=== PATIENT | male | born 1980 | race Caucasian/White ===

== ENCOUNTER 2024-08-20 15:44 | Emergency (ER) | payer SELFPAY ==
[~2024-08-20] VITALS: Ht 170.2 cm; Wt 68.0 kg
[2024-08-20] MEDS ORDERED: ONDANSETRON HCL/PF 4 MG/2 ML VIAL ONE (17:04)
[2024-08-20] MEDS ORDERED: FAMOTIDINE/PF INJ 20 MG/2 ML VIAL IV ONE (17:05)
[2024-08-20] MEDS: IV NS 0.9% 1,000 ML BAG IV ONE (17:17)
[2024-08-20] MEDS ORDERED: PANTOPRAZOLE 40 MG VIAL ONE (17:17)
[2024-08-20] MEDS: ONDANSETRON HCL/PF 4 MG/2 ML VIAL IVP ONE (17:22)
[2024-08-20 17:26] LABS: BASOPHILS # (AUTO) 0.2 K/uL (0.0-0.2); HEMATOCRIT 36 % (39-51); HEMOGLOBIN 11.4 g/dL (13.5-17.5); LYMPHOCYTES # (AUTO) 1.1 K/uL (0.8-4.8); LYMPHOCYTES % (AUTO) 6.6 % (20.0-44.0); MEAN CORPUSCULAR HEMOGLOBIN 24 PG (26.0-33.0); MEAN CORPUSCULAR HGB CONC 32 g/dl (31.0-36.0); MEAN CORPUSCULAR VOLUME 76 fL (80-96); MONOCYTES # (AUTO) 1.7 K/uL (0.1-1.30); MONOCYTES % (AUTO) 10.5 % (2.0-12.0); NEUTROPHILS # (AUTO) 13.6 K/uL (1.8-8.9); NEUTROPHILS % (AUTO) 81.9 % (43.0-81.0); PLATELET COUNT (AUTO) 460 K/uL (150-450); RED BLOOD CELL COUNT(AUTO) 4.78 MIL/uL (4.5-6.0); RED CELL DISTRIBUTION WIDTH 18.5 % (11.5-15.0); WHITE BLOOD COUNT (AUTO) 16.5 K/uL (4.3-11.0)
[2024-08-20] MEDS: PANTOPRAZOLE 40 MG VIAL IV ONE (17:28)
[2024-08-20 17:35] LABS: CALCIUM, SERUM 8.6 mg/dL (8.5-10.1); CARBON DIOXIDE 27 mmol/L (21-32); CHLORIDE 94 mmol/L (98-107); CREATININE 1.5 mg/dL (0.6-1.3); GLUCOSE 120 mg/dL (74-106); POTASSIUM 3.3 mmol/L (3.5-5.1); SODIUM SERUM 133 mmol/L (136-145); UREA NITROGEN, BLOOD 18 mg/dL (7-18)
[2024-08-20 17:48] LABS: APPEARANCE,URINE CLEAR (CLEAR); BILIRUBIN,URINE Negative (NEGATIVE); BLOOD, URINE Moderate Ery/uL (NEGATIVE); COLOR,URINE YELLOW (YELLOW); KETONES,URINE 40 mg/dL (NEGATIVE); LEUKOCYTE ESTERASE ,URINE Negative (NEGATIVE); PH,URINE 5.5 (5.0-8.0); PROTEIN,URINE >=300 mg/dl (NEGATIVE); UGLUCOSE Negative (NEGATIVE); UROBILINOGEN,URINE 0.2 EU/dL (0.2)
[2024-08-20 17:51] LABS: NITRITE, URINE NEGATIVE (NEGATIVE)
[2024-08-20 17:52] LABS: ADD URINE CULTURE NO; BACTERIA,URINE Few /HPF (None Seen); SQUAMOUS EPITHELIAL CELL,UR None Seen /HPF (None Seen)
[2024-08-20 17:55] LABS: ALANINE AMINOTRANSFERASE 40 U/L (12-78); ALCOHOL, BLOOD 327 mg/dL (0-10); ALKALINE PHOSPHATASE 99 U/L (46-116); ASPARTATE AMINOTRANSFERASE 48 U/L (15-37); BILIRUBIN,DIRECT 0.2 mg/dL (0.0-0.2); BILIRUBIN,TOTAL 0.6 mg/dL (0.2-1.0); TOTAL PROTEIN, SERUM 8.3 g/dL (6.4-8.2)
[2024-08-20 17:56] LABS: ACETAMINOPHEN <10 ug/ml (10-30); SALICYLATE 1.1 mg/dL (2.8-20.0)
[2024-08-20 17:56] LABS: AMPHETAMINE, URINE NEGATIVE (NEGATIVE); BARBITURATE, URINE NEGATIVE (NEGATIVE); BENZODIAZEPINE, URINE NEGATIVE (NEGATIVE); CANNABINOID, URINE NEGATIVE (NEGATIVE); COCCAINE, URINE NEGATIVE (NEGATIVE); OPIATE, URINE NEGATIVE (NEGATIVE); PHENCYCLIDINE SCREEN,URINE NEGATIVE (NEGATIVE)
[2024-08-20 20:12] VITALS: BP 138/88; TEMP 98.2; O2SAT 98
[2024-08-21] MEDS ORDERED: ONDANSETRON HCL/PF 4 MG/2 ML VIAL ONE (03:05)
[2024-08-21] MEDS ORDERED: PANTOPRAZOLE 40 MG VIAL ONE (03:05)
[2024-08-21] MEDS ORDERED: POTASSIUM CL. PREMIX PERIPHER. 100 ML ONE (03:06)
[2024-08-21] MEDS ORDERED: OCTREOTIDE 50 MCG/ML AMPUL ONE (03:06)
[2024-08-21] MEDS ORDERED: ESCI20TA PO (10:02)
[2024-08-21] MEDS ORDERED: BUPR300T52 PO (10:02)
[2024-08-23] MEDS ORDERED: Thiamine HCL PO (13:28)
[2024-08-23] MEDS ORDERED: CHLO25CA22 PO (13:28)
[2024-08-23] MEDS ORDERED: PANT40TA49 PO (13:28)
== END 2024-08-20 20:13 | disposition home or self-care (01) ==
LOC: ER 15:53
DX: F10.129 Alcohol abuse with intoxication, unspecified (principal); R11.10 Vomiting, unspecified; Z60.2 Problems related to living alone; Z79.899 Other long term (current) drug therapy; Z20.822 Contact with and (suspected) exposure to COVID-19; Y90.8 Blood alcohol level of 240 mg/100 ml or more
CPT/HCPCS: 99285; 96374; 96361; 96375; 93005; 85025; 80048; 80076; 81001; 36415; 84484; 87426; 80143; 80320 ×2; 80307; J2405; J7030; J2470; G0480; J1308; J2354; J3480

== ENCOUNTER 2024-08-21 01:29 | Inpatient (IN) | payer SELFPAY ==
[~2024-08-21] VITALS: Ht 170.2 cm; Wt 72.6 kg
[2024-08-21] MEDS: IV NS 0.9% 1,000 ML IV ONE (02:07)
[2024-08-21 02:17] LABS: BASOPHILS # (AUTO) 0.1 K/uL (0.0-0.2); BASOPHILS % (AUTO) 0.6 % (0.0-2.0); EOSINOPHILS % (AUTO) 0.1 % (0.0-6.0); HEMATOCRIT 36 % (39-51); HEMOGLOBIN 11.1 g/dL (13.5-17.5); LYMPHOCYTES # (AUTO) 1.4 K/uL (0.8-4.8); LYMPHOCYTES % (AUTO) 10.6 % (20.0-44.0); MEAN CORPUSCULAR HEMOGLOBIN 24 PG (26.0-33.0); MEAN CORPUSCULAR HGB CONC 31 g/dl (31.0-36.0); MEAN CORPUSCULAR VOLUME 77 fL (80-96); MONOCYTES # (AUTO) 1.2 K/uL (0.1-1.30); NEUTROPHILS # (AUTO) 10.6 K/uL (1.8-8.9); NEUTROPHILS % (AUTO) 79.7 % (43.0-81.0); PLATELET COUNT (AUTO) 387 K/uL (150-450); RED BLOOD CELL COUNT(AUTO) 4.64 MIL/uL (4.5-6.0); RED CELL DISTRIBUTION WIDTH 18.7 % (11.5-15.0); WHITE BLOOD COUNT (AUTO) 13.3 K/uL (4.3-11.0)
[2024-08-21 02:31] LABS: CALCIUM, SERUM 8.8 mg/dL (8.5-10.1); CREATININE 1.2 mg/dL (0.6-1.3); POTASSIUM 3.2 mmol/L (3.5-5.1)
[2024-08-21 02:38] LABS: BILIRUBIN,TOTAL 0.6 mg/dL (0.2-1.0)
[2024-08-21 02:48] LABS: APPEARANCE,URINE CLEAR (CLEAR); BILIRUBIN,URINE NEGATIVE (NEGATIVE); BLOOD, URINE 1+ Ery/uL (NEGATIVE); COLOR,URINE YELLOW (YELLOW); KETONES,URINE NEGATIVE (NEGATIVE); LEUKOCYTE ESTERASE ,URINE NEGATIVE (NEGATIVE); NITRITE, URINE NEGATIVE (NEGATIVE); PROTEIN,URINE NEGATIVE (NEGATIVE); UGLUCOSE NEGATIVE (NEGATIVE); UROBILINOGEN,URINE 0.2 EU/dL (0.2)
[2024-08-21 03:00] LABS: AMPHETAMINE, URINE NEGATIVE (NEGATIVE); BARBITURATE, URINE NEGATIVE (NEGATIVE); BENZODIAZEPINE, URINE NEGATIVE (NEGATIVE); CANNABINOID, URINE NEGATIVE (NEGATIVE); COCCAINE, URINE NEGATIVE (NEGATIVE); OPIATE, URINE NEGATIVE (NEGATIVE); PHENCYCLIDINE SCREEN,URINE NEGATIVE (NEGATIVE)
[2024-08-21] MEDS: PANTOPRAZOLE 40 MG VIAL IV ONE (03:18)
[2024-08-21] MEDS: ONDANSETRON HCL/PF - ER 4 MG/2 ML VIAL IV ONE (03:18)
[2024-08-21] MEDS: OCTREOTIDE 50 MCG/ML AMPUL IV STA (03:18)
[2024-08-21] MEDS: POTASSIUM CL. PREMIX PERIPHER. 50 ML IV SCH (03:18)
[2024-08-21 03:34] LABS: WBC,URINE NONE SEEN /HPF (0-3)
[2024-08-21 03:35] LABS: ADD URINE CULTURE NO; BACTERIA,URINE Rare /HPF (None Seen); RBC,URINE 0-2 /HPF (0-2); SQUAMOUS EPITHELIAL CELL,UR Rare /HPF (None Seen)
[2024-08-21 04:59] LABS: HEMOGLOBIN 10.3 g/dL (13.5-17.5)
[2024-08-21] MEDS ORDERED: ONDANSETRON HCL/PF 4 MG/2 ML VIAL IVP PRN (07:00)
[2024-08-21] MEDS ORDERED: OCTREOTIDE 500 MCG in IV NS 0.9% 99 ML IV PRN (07:00)
[2024-08-21] MEDS ORDERED: ACETAMINOPHEN 325 MG TABLET PO PRN (07:00)
[2024-08-21] MEDS ORDERED: MAG HYDROX/AL HYDROX/SIMETH 30 ML UDC PO PRN (07:00)
[2024-08-21] MEDS ORDERED: MAGNESIUM HYDROXIDE 30 ML UDC PO PRN (07:00)
[2024-08-21] MEDS ORDERED: Z GUARD REMEDY 4 OZ OINT TP PRN (07:00)
[2024-08-21] MEDS: PANTOPRAZOLE 80 MG in IV NS 0.9% 500 ML IV SCH (07:30)
[2024-08-21] MEDS: OCTREOTIDE 1,250 MCG in IV NS 0.9% 247.5 ML IV SCH (07:31)
[2024-08-21 08:00] VITALS: BP 136/84; TEMP 98.4
[2024-08-21] MEDS ORDERED: POTASSIUM CL. PREMIX PERIPHER. 50 ML IV SCH (10:00)
[2024-08-21] MEDS ORDERED: ESCI20TA PO (10:02)
[2024-08-21] MEDS ORDERED: BUPR300T52 PO (10:02)
[2024-08-21 13:04] LABS: HEMOGLOBIN 9.4 g/dL (13.5-17.5)
[2024-08-21] MEDS: POTASSIUM CHLORIDE 20 MEQ POWDER PACKET PO ONE (13:13)
[2024-08-21] MEDS: IV D5/0.45 NACL 1,000 ML IV PRN (13:23)
[2024-08-21] MEDS: Thiamine 100 MG in IV D5W 50 ML IV SCH (13:31)
[2024-08-21] MEDS: CHLORDIAZEPOXIDE HCL 25 MG CAPSULE PO SCH (17:20)
[2024-08-21 20:00] VITALS: BP 152/84; TEMP 98.8; O2SAT 100
[2024-08-21] MEDS: PANTOPRAZOLE 40 MG VIAL IV SCH (20:49)
[2024-08-21] MEDS: ZOLPIDEM TARTRATE 5 MG TABLET PO PRN (23:55)
[2024-08-22] VITALS: BP 150/87; TEMP 99; O2SAT 100
[2024-08-22 01:26] LABS: OCCULT BLOOD STOOL POSITIVE (NEGATIVE)
[2024-08-22] MEDS ORDERED: chlorproMAZINE HCL 25 MG TABLET PO PRN (01:30)
[2024-08-22] MEDS: chlorproMAZINE HCL 25 MG TABLET PO PRN (01:43)
[2024-08-22 04:00] VITALS: BP 138/83; TEMP 98.4; O2SAT 100
[2024-08-22 06:51] LABS: BASOPHILS % (AUTO) 0.4 % (0.0-2.0); EOSINOPHILS % (AUTO) 0.4 % (0.0-6.0); HEMATOCRIT 30 % (39-51); HEMOGLOBIN 9.4 g/dL (13.5-17.5); LYMPHOCYTES # (AUTO) 0.9 K/uL (0.8-4.8); LYMPHOCYTES % (AUTO) 12.7 % (20.0-44.0); MEAN CORPUSCULAR HEMOGLOBIN 24 PG (26.0-33.0); MEAN CORPUSCULAR HGB CONC 32 g/dl (31.0-36.0); MEAN CORPUSCULAR VOLUME 76 fL (80-96); MONOCYTES # (AUTO) 0.6 K/uL (0.1-1.30); MONOCYTES % (AUTO) 8.6 % (2.0-12.0); NEUTROPHILS # (AUTO) 5.6 K/uL (1.8-8.9); NEUTROPHILS % (AUTO) 77.9 % (43.0-81.0); PLATELET COUNT (AUTO) 297 K/uL (150-450); RED BLOOD CELL COUNT(AUTO) 3.95 MIL/uL (4.5-6.0); RED CELL DISTRIBUTION WIDTH 18.2 % (11.5-15.0); WHITE BLOOD COUNT (AUTO) 7.2 K/uL (4.3-11.0)
[2024-08-22 07:00] VITALS: BP 139/88; TEMP 98.1; O2SAT 98
[2024-08-22 07:05] LABS: CALCIUM, SERUM 8.7 mg/dL (8.5-10.1); CREATININE 1.1 mg/dL (0.6-1.3); MAGNESIUM 2.4 mg/dL (1.8-2.4); PHOSPHORUS 2.8 mg/dL (2.5-4.9); POTASSIUM 3.4 mmol/L (3.5-5.1)
[2024-08-22] MEDS: BUPROPION XL 150 MG TAB.ER.24 PO SCH (08:28)
[2024-08-22] MEDS: ESCITALOPRAM OXALATE (10 MG) 10 MG TABLET PO SCH (08:28)
[2024-08-22] MEDS: THIAMINE HCL 100 MG TABLET PO SCH (08:28)
[2024-08-22] MEDS: PANTOPRAZOLE 40 MG TABLET.DR PO SCH (08:29)
[2024-08-22] MEDS: POTASSIUM CHLORIDE 20 MEQ TAB.PRT.SR PO SCH (09:34)
[2024-08-22 12:44] LABS: HEMOGLOBIN 9.3 g/dL (13.5-17.5)
[2024-08-22 16:00] VITALS: BP 139/88; TEMP 98.1; O2SAT 98
[2024-08-22 20:00] VITALS: BP 131/95; TEMP 99; O2SAT 97; O2SAT 99
[2024-08-23] MEDS: LORAZEPAM INJ 2 MG/ML VIAL IV PRN (01:07)
[2024-08-23 06:47] LABS: BASOPHILS % (AUTO) 0.5 % (0.0-2.0); EOSINOPHILS # (AUTO) 0.2 K/uL (0.0-0.7); EOSINOPHILS % (AUTO) 2.7 % (0.0-6.0); HEMATOCRIT 31 % (39-51); HEMOGLOBIN 9.8 g/dL (13.5-17.5); LYMPHOCYTES # (AUTO) 1.1 K/uL (0.8-4.8); LYMPHOCYTES % (AUTO) 18.9 % (20.0-44.0); MEAN CORPUSCULAR HEMOGLOBIN 24 PG (26.0-33.0); MEAN CORPUSCULAR HGB CONC 32 g/dl (31.0-36.0); MEAN CORPUSCULAR VOLUME 76 fL (80-96); MONOCYTES # (AUTO) 0.6 K/uL (0.1-1.30); MONOCYTES % (AUTO) 10.5 % (2.0-12.0); NEUTROPHILS # (AUTO) 3.8 K/uL (1.8-8.9); NEUTROPHILS % (AUTO) 67.4 % (43.0-81.0); PLATELET COUNT (AUTO) 283 K/uL (150-450); RED BLOOD CELL COUNT(AUTO) 4.06 MIL/uL (4.5-6.0); RED CELL DISTRIBUTION WIDTH 17.9 % (11.5-15.0); WHITE BLOOD COUNT (AUTO) 5.6 K/uL (4.3-11.0)
[2024-08-23 07:13] LABS: CALCIUM, SERUM 8.6 mg/dL (8.5-10.1); CREATININE 1.1 mg/dL (0.6-1.3); POTASSIUM 3.2 mmol/L (3.5-5.1)
[2024-08-23 08:30] VITALS: BP 146/96; TEMP 98.9; O2SAT 99
[2024-08-23] MEDS: POTASSIUM CHLORIDE 20 MEQ TAB.PRT.SR PO SCH (10:40)
[2024-08-23] MEDS ORDERED: CHLO25CA22 PO (13:28)
[2024-08-23] MEDS ORDERED: Thiamine HCL PO (13:28)
[2024-08-23] MEDS ORDERED: PANT40TA49 PO (13:28)
== END 2024-08-23 14:36 | disposition home or self-care (01) | DRG 378 ==
LOC: ER 01:31 → TELE 05:31 → MED 08-22
PROVIDERS: ADMIT Student in an Organized Health Care Education/Training Program; ATTEND Nurse Practitioner Acute Care
DX: K92.2 Gastrointestinal hemorrhage, unspecified (principal); D62 Acute posthemorrhagic anemia; F10.139 Alcohol abuse with withdrawal, unspecified; E87.6 Hypokalemia; D72.829 Elevated white blood cell count, unspecified; F41.9 Anxiety disorder, unspecified; F32.A Depression, unspecified; Z87.19 Personal history of other diseases of the digestive system; Y90.8 Blood alcohol level of 240 mg/100 ml or more; F10.129 Alcohol abuse with intoxication, unspecified
CPT/HCPCS: 36415; 80048-TC; 80053-TC; 81001; 82272-TC; 83735-TC; 84100-TC; 85025-TC; 85027-TC; 87081-TC; A4223; A4565; G0378; G0480; J2060; J2354; J2405; J2470; J3411; J3480; J3490; J7030; J7040; J7050; J7060; Q0161

== ENCOUNTER 2025-04-01 00:22 | Emergency (ER) | payer BC ==
[~2025-04-01] VITALS: Ht 170.2 cm; Wt 72.6 kg
[~2025-04-01 00:22] MED LIST: BUPR300T52 PO; CHLO25CA22 PO; ESCI20TA PO; PANT40TA49 PO; Thiamine HCL PO
[2025-04-01 00:30] VITALS: TEMP 98.3
[2025-04-01 01:15] LABS: PLATELET COUNT (AUTO) 310 K/uL (150-450); RED BLOOD CELL COUNT(AUTO) 5.24 MIL/uL (4.5-6.0); RED CELL DISTRIBUTION WIDTH 15.8 % (11.5-15.0); WHITE BLOOD COUNT (AUTO) 6.5 K/uL (4.3-11.0)
[2025-04-01 01:26] LABS: CALCIUM, SERUM 8.4 mg/dL (8.5-10.1); CREATININE 1.1 mg/dL (0.6-1.3); SODIUM SERUM 146 mmol/L (136-145); UREA NITROGEN, BLOOD 9 mg/dL (7-18)
[2025-04-01 01:32] LABS: ALCOHOL, BLOOD 343 mg/dL (0-10); ASPARTATE AMINOTRANSFERASE 39 U/L (15-37); TOTAL PROTEIN, SERUM 8.4 g/dL (6.4-8.2)
[2025-04-01 02:39] LABS: APPEARANCE,URINE CLEAR (CLEAR); BLOOD, URINE 1+ Ery/uL (NEGATIVE); LEUKOCYTE ESTERASE ,URINE NEGATIVE (NEGATIVE); NITRITE, URINE NEGATIVE (NEGATIVE); UGLUCOSE NEGATIVE (NEGATIVE)
[2025-04-01 02:52] LABS: AMPHETAMINE, URINE NEGATIVE (NEGATIVE); BARBITURATE, URINE NEGATIVE (NEGATIVE); BENZODIAZEPINE, URINE NEGATIVE (NEGATIVE); CANNABINOID, URINE NEGATIVE (NEGATIVE); COCCAINE, URINE NEGATIVE (NEGATIVE); OPIATE, URINE NEGATIVE (NEGATIVE)
[2025-04-01 02:57] LABS: ADD URINE CULTURE NO; SQUAMOUS EPITHELIAL CELL,UR None Seen /HPF (None Seen)
[2025-04-01 06:11] VITALS: BP 133/70; O2SAT 99
== END 2025-04-01 06:12 | disposition home or self-care (01) ==
LOC: ER 00:24
DX: F10.129 Alcohol abuse with intoxication, unspecified (principal); F32.A Depression, unspecified; Z60.2 Problems related to living alone; Z79.899 Other long term (current) drug therapy; Y90.9 Presence of alcohol in blood, level not specified
CPT/HCPCS: 36415; 80048-TC; 80076-TC; 81001; 85025-TC; G0480